=== PATIENT | male | born 1990 | race Caucasian/White ===

== ENCOUNTER 2019-01-13 18:43 | Emergency (ER) | payer OTHER ==
[~2019-01-13] VITALS: Ht 172.7 cm; Wt 59.3 kg
[2019-01-13 19:09] VITALS: Ht 172.7 cm; Wt 59.3 kg
--- NOTE | 2019-01-13 22:48 | ERD ---
ER Documentation Chief Complaint Chief Complaint has been feeling shaky today, stuttering in intake HPI 28-year-old male presents with anxiety. States that he had a needlestick 2 weeks ago at work where he works as a [employer] and he has since received an infectious disease panel from his community clinic but the results are not currently available for another week. In addition he states has been having a hard time sleeping and he feels like he is always thirsty. States that he has history of anxiety for which she takes Zoloft. Denies any history of thyroid trouble, nausea, vomiting, diarrhea, fevers. Denies suicidal or homicidal ideation or hallucinations. Denies past medical history. Denies allergies. Denies surgeries. Denies alcohol, tobacco, drug use. Up to date on vaccines. ROS All systems reviewed and are negative except as per history of present illness. Medications Home Meds Active Scripts Lorazepam* (Lorazepam*) 1 Mg Tablet, 1 MG PO Q8H PRN for ANXIETY, #10 TAB Prov:SYLVESTER THOMPSON 01/14/19 Allergies Allergies: Coded Allergies: No Known Allergy (Unverified , 01/14/19) PMhx/Soc Medical and Surgical Hx: pt denies Medical Hx, pt denies Surgical Hx Hx Alcohol Use: No Hx Substance Use: No Hx Tobacco Use: No Smoking Status: Never smoker FmHx Family History: No diabetes, No coronary disease, No other Physical Exam Vitals Vital Signs Date Temp Pulse Resp B/P (MAP) Pulse Ox O2 O2 Flow FiO2 Time Delivery Rate 01/14/19 98.6 79 18 132/83 99 Room Air 00:38 (99) 01/13/19 99.3 77 22 141/89 98 19:09 (106) Physical Exam Const: No acute distress Head: Atraumatic Eyes: Normal Conjunctiva ENT: Normal External Ears, Nose and Mouth. Neck: Full range of motion. No meningismus. Resp: Clear to auscultation bilaterally Cardio: Regular rate and rhythm, no murmurs Abd: Soft, non tender, non distended. Normal bowel sounds Skin: No petechiae or rashes Back: No midline or flank tenderness Ext: No cyanosis, or edema Neur: Awake and alert Psych: Patient appears anxious. Denies suicidal or homicidal ideation or hallucinations. Result Diagram: 01/13/19224401/13/192244 Results 24 hrs Laboratory Tests Test 01/13/19 22:45 White Blood Count 8.6 10^3/ul Red Blood Count 5.89 10^6/ul Hemoglobin 17.7 g/dl Hematocrit 51.9 % Mean Corpuscular Volume 88.1 fl Mean Corpuscular Hemoglobin 30.1 pg Mean Corpuscular Hemoglobin Concent 34.1 g/dl Red Cell Distribution Width 12.7 % Platelet Count 311 10^3/UL Mean Platelet Volume 10.9 fl Immature Granulocytes % 0.200 % Neutrophils % 73.5 % Lymphocytes % 18.3 % Monocytes % 5.6 % Eosinophils % 1.4 % Basophils % 1.0 % Nucleated Red Blood Cells % 0.0 /100WBC Immature Granulocytes # 0.020 10^3/ul Neutrophils # 6.3 10^3/ul Lymphocytes # 1.6 10^3/ul Monocytes # 0.5 10^3/ul Eosinophils # 0.1 10^3/ul Basophils # 0.1 10^3/ul Nucleated Red Blood Cells # 0.0 10^3/ul Sodium Level 141 mmol/L Potassium Level 3.6 mmol/L Chloride Level 101 mmol/L Carbon Dioxide Level 25 mmol/L Anion Gap 15 Blood Urea Nitrogen 15 mg/dl Creatinine 0.88 mg/dl Est Glomerular Filtrat Rate mL/min > 60 mL/min Glucose Level 136 mg/dl Calcium Level 10.4 mg/dl Total Bilirubin 1.7 mg/dl Direct Bilirubin 0.00 mg/dl Indirect Bilirubin 1.7 mg/dl Aspartate Amino Transf (AST/SGOT) 25 IU/L Alanine Aminotransferase (ALT/SGPT) 11 IU/L Alkaline Phosphatase 115 IU/L Total Protein 9.7 g/dl Albumin 5.2 g/dl Globulin 4.50 g/dl Albumin/Globulin Ratio 1.15 Thyroid Stimulating Hormone (TSH) 2.780 MIU/L Current Medications Medications Dose Sig/Markos Start Time Status Last (Trade) Ordered Route PRN Stop Time Admin Dose Reason Admin Lorazepam 1 mg ONCE ONCE 01/13/19 DC 01/13/19 (Ativan) PO 23:00 22:41 01/13/19 23:01 Procedures/MDM 28-year-old male presents with anxiety. States that he had a needlestick 2 weeks ago at work where he works as a [employer] and he has since received an infectious disease panel from his community clinic but the results are not currently available for another week. In addition he states has been having a hard time sleeping and he feels like he is always thirsty. States that he has history of anxiety for which she takes Zoloft. Denies any history of thyroid trouble, nausea, vomiting, diarrhea, fevers. Denies past medical history. Denies allergies. Denies surgeries. Denies alcohol, tobacco, drug use. Up to date on vaccines. Blood work and vitals within normal limits. Patient given A tivan in the ER and says that it helped with his anxiety. In addition patient said he wanted medication to help him sleep so he was given short course of Ativan at discharge. Low suspicion for homicidal or suicidal ideation, thyroid storm, hyper or hypoglycemia, or other emergent condition. Patient discharged with strict ER precautions. Patient advised to follow up with PMD. All questions answered at discharge. Departure Diagnosis: Primary Impression: Anxiety Condition: Stable SYLVESTER THOMPSON Jan 13, 2019 22:48
[2019-01-13] MEDS ORDERED: LORAZEPAM 1 MG TAB PO ONE (23:00)
[2019-01-14] MEDS ORDERED: LORA1TAB PO (00:30)
[2019-01-14 00:38] VITALS: BP 132/83; PULSE 79; RESP 18
== END 2019-01-14 00:40 | disposition home or self-care (01) ==
LOC: FTE 18:43
DX: F41.9 Anxiety disorder, unspecified (principal)
CPT/HCPCS: 80053; 84443; 85025; Z7502; Z7610; 99283

== ENCOUNTER 2019-01-14 11:39 | Emergency (ER) | payer OTHER ==
[~2019-01-14] VITALS: Ht 180.3 cm; Wt 58.6 kg
[~2019-01-14 11:39] MED LIST: LORA1TAB PO
[2019-01-14 11:45] VITALS: BP 133/73; PULSE 87; RESP 19; Ht 180.3 cm; Wt 58.6 kg
--- NOTE | 2019-01-14 12:55 | ERD ---
ER Documentation Chief Complaint Chief Complaint seen in ed2 yesterday lost perscription HPI 28-year-old male with no significant past medical history who presents to emergency room for prescription refill. Was seen in this ED yesterday and treated with single dose of p.o. Ativan for anxiety. States he would like a refill of Ativan medication. Informed patient that cannot write prescriptions for chronic medications and that he will need to follow-up psychiatrist of his chronic anxiety. At time of evaluation patient not appearing anxious and in no acute distress. States he follows closely with his psychiatrist. Informed patient of the need to wait for discharge documentation patient chosen to elope time. ROS All systems reviewed and are negative except as per history of present illness. Medications Home Meds Active Scripts Lorazepam* (Lorazepam*) 1 Mg Tablet, 1 MG PO Q8H PRN for ANXIETY, #10 TAB Prov:SYLVESTER THOMPSON 01/14/19 Allergies Allergies: Coded Allergies: No Known Allergy (Unverified , 01/14/19) PMhx/Soc Medical and Surgical Hx: pt denies Medical Hx, pt denies Surgical Hx Hx Alcohol Use: No Hx Substance Use: No Hx Tobacco Use: No Smoking Status: Never smoker FmHx Family History: No diabetes, No coronary disease, No other Physical Exam Vitals Vital Signs Date Temp Pulse Resp B/P (MAP) Pulse Ox O2 O2 Flow FiO2 Time Delivery Rate 01/14/19 98.8 87 19 133/73 98 11:45 (93) Physical Exam Deferred Procedures/MDM 28-year-old male with psych history who presents to ED after being seen yesterday for prescription refill of Ativan. Patient triage vitals stable. At time of evaluation not appearing anxious or any distress. Explained to patient in detail that he will need to follow closely with his regular doctor as well as psychiatrist for management of his chronic psychiatric issues including anxiety. Patient electing to elope without waiting for discharge instructions. Departure Diagnosis: Primary Impression: Encounter for medication refill Condition: Stable Patient Instructions: Taking Medicine Safely Referrals: JOSÉ MIGUEL RUFFIN MD (PCP) Additional Instructions: Call your primary care doctor TOMORROW for an appointment during the next 2-3 days.See the doctor sooner or return here if your condition worsens before your appointment time. You should follow up with your psychiatrist for continued psychiatric care and for treatment for your chronic anxiety. JESS BARBER PA-C Jan 14, 2019 12:55
== END 2019-01-14 13:49 | disposition left against medical advice (07) ==
LOC: FTE 11:39
DX: Z76.0 Encounter for issue of repeat prescription (principal)
CPT/HCPCS: 99281